=== PATIENT | female | born 1965 | race Caucasian/White ===

== ENCOUNTER 2019-04-24 23:05 | Emergency (ER) | payer OTHER ==
[~2019-04-24] VITALS: Ht 165.1 cm; Wt 107.0 kg
[2019-04-24 23:13] VITALS: Ht 165.1 cm; Wt 107.0 kg
[2019-04-25 00:45] VITALS: BP 154/60
== END 2019-04-25 00:45 | disposition home or self-care (01) ==
LOC: ED 23:05
DX: G44.209 Tension-type headache, unspecified, not intractable (principal); M54.2 Cervicalgia; J44.9 Chronic obstructive pulmonary disease, unspecified; I10 Essential (primary) hypertension; M79.7 Fibromyalgia; Z88.8 Allergy status to other drugs, medicaments and biological substances; Z88.5 Allergy status to narcotic agent
CPT/HCPCS: J1885; J3010